=== PATIENT | female | born 1965 | race Caucasian/White ===

== ENCOUNTER 2020-02-09 09:37 | Emergency (ER) | payer OTHER, SELFPAY ==
[~2020-02-09] VITALS: Ht 154.9 cm; Wt 65.8 kg
[2020-02-09 09:38] VITALS: Ht 154.9 cm; Wt 65.8 kg
[2020-02-09 10:48] VITALS: BP 130/78
== END 2020-02-09 10:48 | disposition home or self-care (01) ==
LOC: ED 09:37
DX: U07.1 COVID-19 (principal); J06.9 Acute upper respiratory infection, unspecified; Z90.710 Acquired absence of both cervix and uterus; Z98.890 Other specified postprocedural states
CPT/HCPCS: U0003-CS

== ENCOUNTER 2020-06-07 11:49 | Emergency (ER) | payer OTHER ==
[~2020-06-07] VITALS: Ht 154.9 cm; Wt 86.2 kg
[2020-06-07 12:32] VITALS: BP 126/85; Ht 154.9 cm; Wt 86.2 kg
[2020-06-07] MEDS ORDERED: MOT800 PO (14:31)
== END 2020-06-07 14:44 | disposition home or self-care (01) ==
LOC: ED 11:49
DX: S90.121A Contusion of right lesser toe(s) without damage to nail, initial encounter (principal); W22.8XXA Striking against or struck by other objects, initial encounter; Y93.89 Activity, other specified; Y92.89 Other specified places as the place of occurrence of the external cause; Y99.8 Other external cause status